=== PATIENT | male | born 1975 | race Caucasian/White ===

== ENCOUNTER 2023-05-21 15:12 | Emergency (ER) | payer OTHER ==
[~2023-05-21] VITALS: Ht 182.9 cm; Wt 102.3 kg
[2023-05-21 15:20] VITALS: BP 139/88; TEMP 98.3
[2023-05-21] MEDS ORDERED: CEPHALEXIN500 M1 PO (15:52)
[2023-05-21] MEDS ORDERED: FLUOCINOLONE TP (15:52)
[2023-05-21 16:00] VITALS: PULSE 70
== END 2023-05-21 16:00 | disposition home or self-care (01) ==
LOC: COL.ER 15:12
DX: L03.116 Cellulitis of left lower limb (principal); L30.9 Dermatitis, unspecified